=== PATIENT | male | born 1970 | race Hispanic/Latino ===

== ENCOUNTER 2016-09-03 21:52 | Emergency (ER) | payer BC ==
[2016-09-03 21:58] VITALS: BP 154/98; PULSE 84; RESP 16; TEMP 98.1; O2SAT 100
[2016-09-03] MEDS ORDERED: Alum-Mag Hydrox-Simethicone Susp (30 mL) ONE (22:39)
[2016-09-03] MEDS: Alum-Mag Hydrox-Simethicone Susp (30 mL) PO STA (22:41)
--- NOTE | 2016-09-03 23:04 | ED PDOC ---
HPI: General Adult Time Seen by Provider: 09/03/16 21:58 Chief Complaint (Nursing): ENT Problem Chief Complaint (Provider): Neck pain when swallowing x 1 week History Per: Patient History/Exam Limitations: no limitations Onset/Duration Of Symptoms: Days Have you had recent travel within the past 21 days to any of the following countries: [place], [place], [place] or [place]?: No Additional Complaint(s): Pt has been taking a PPI and has never had endoscopy. PT states he has history of chewing tobacco and his is concerned about CA. Pt states he is able to drink liquids and solids. Denies fever/chills. Denies weight loss. Past Medical History Vital Signs: Last Vital Signs Temp 98.1 F 09/03/16 21:55 Pulse 84 09/03/16 21:55 Resp 16 09/03/16 21:55 BP 154/98 H 09/03/16 21:55 Pulse Ox 100 09/03/16 23:04 - Home Medications Home Medications: Ambulatory Orders Medication Instructions Recorded Famotidine [Pepcid] 20 mg PO BID #28 tab 09/03/16 - Allergies Allergies/Adverse Reactions: Allergies Allergy/AdvReac Type Severity Reaction Status Date / Time No Known Allergies Allergy Verified 09/03/16 21:55 - ECG O2 Sat by Pulse Oximetry: 100 Disposition - Clinical Impression Clinical Impression: GERD (gastroesophageal reflux disease) - Patient ED Disposition Is Patient to be Admitted: No Counseled Patient/Family Regarding: Diagnosis, Need For Followup, Rx Given - Disposition Referrals: Osmany Lee MD, PhD [Staff Provider] - Disposition: Routine/Home Disposition Time: 23:04 Condition: GOOD Prescriptions: Famotidine [Pepcid] 20 mg PO BID #28 tab Instructions: Gastroesophageal Reflux Disease (ED)
== END 2016-09-03 23:13 | disposition home or self-care (01) ==
LOC: H.ER 21:52
DX: K08.89 Other specified disorders of teeth and supporting structures (principal)